=== PATIENT | female | born 1990 | race Caucasian/White ===

== ENCOUNTER 2017-09-29 16:57 | Emergency (ER) | payer SELFPAY ==
[~2017-09-29] VITALS: Ht 157.5 cm; Wt 64.9 kg
[2017-09-29 17:41] VITALS: BP 111/76
[2017-09-29 18:44] VITALS: BP 110/74
[2017-09-29] MEDS ORDERED: ANUSOL-HC25 MG RECTAL (19:05)
[2017-09-29] MEDS ORDERED: CYCLOBENZAPRINE10 MG ORAL (19:05)
[2017-09-29] MEDS ORDERED: IBUPROFEN600 MG ORAL (19:05)
[2017-09-29] MEDS ORDERED: COLACE100 MG ORAL (19:05)
[2017-09-29 19:10] VITALS: BP 110/74
--- NOTE | 2017-09-29 21:41 | Emergency Room Report ---
History of Present Illness General Chief Complaint: General Complaint Source: Patient Present Illness HPI 27-year-old female presents ED for evaluation. States that she's been experiencing blood in her stool 1 week. Also complaining of lower abdominal pain, throbbing, 5 out of 10, nonradiating. States she's been having problems with constipation and has been straining for bowel movements. Denies any nausea or vomiting. Also complaining of right leg pain 6 months. Denies trauma to the leg. Notes pain in her right leg radiating to her hip. Patient is able to walk. No other aggravating or relieving factors. Denies any other associated symptoms Allergies: Coded Allergies: No Known Allergies (Unverified , 09/29/17) Patient History Past Medical History: none Past Surgical History: none Pertinent Family History: none Social History: Denies: smoking, alcohol use, drug use Last Menstrual Period: 08/23/17 Now: No Immunizations: UTD Reviewed Nursing Documentation: PMH: Agreed, PSxH: Agreed Nursing Documentation-PMH Past Medical History: No Stated History Review of Systems All Other Systems: negative except mentioned in HPI Physical Exam Vital Signs Date Time Temp Pulse Resp B/P (MAP) Pulse Ox O2 Delivery O2 Flow Rate FiO2 09/29/17 17:19 98.3 77 18 111/76 97 Room Air 98.2 Sp02 EP Interpretation: reviewed, normal General Appearance: no apparent distress, alert, GCS 15, non-toxic Head: normocephalic, atraumatic Eyes: bilateral eye normal inspection, bilateral eye PERRL ENT: hearing grossly normal, normal pharynx, no angioedema, normal voice Neck: full range of motion, supple/symm/no masses Respiratory: chest non-tender, lungs clear, normal breath sounds, speaking full sentences Cardiovascular #1: regular rate, rhythm, no edema Cardiovascular #2: 2+ carotid (R), 2+ carotid (L), 2+ radial (R), 2+ radial (L) , 2+ dorsalis pedis (R), 2+ dorsalis pedis (L) Gastrointestinal: normal bowel sounds, non tender, soft, non-distended, no guarding, no rebound Rectal: deferred Genitourinary: normal inspection, no CVA tenderness Musculoskeletal: back normal, gait/station normal, normal range of motion, non- tender Neurologic: alert, oriented x3, responsive, motor strength/tone normal, sensory intact, speech normal Psychiatric: judgement/insight normal, memory normal, mood/affect normal, no suicidal/homicidal ideation Reflexes: 3+ bicep (R), 3+ bicep (L), 3+ tricep (R), 3+ tricep (L), 3+ knee (R) , 3+ knee (L) Skin: normal color, no rash, warm/dry, well hydrated Lymphatic: no adenopathy Medical Decision Making Diagnostic Impression: Primary Impression: Constipation Qualified Codes: K59.00 - Constipation, unspecified Additional Impression: Hip strain Qualified Codes: S76.011A - Strain of muscle, fascia and tendon of right hip, initial encounter ER Course Hospital Course 27-year-old female presents ED complaining of right hip pain and right leg pain 6 months. Also complaining of constipation with blood in stool Differential diagnoses include: Fracture, dislocation, sprain, contusion Clinical course Patient placed on stretcher. After initial history and physical, I ordered xrays of R hip and R femur Xrays prelim read shows no acute fracture/dislocation. Discussed findings with patient. I believe pain is likely muscular. Did recommend close follow-up with PMD. I'll prescribe anti-inflammatories and muscle relaxants. I will also prescribe stool softeners and suppositories for her constipation Diagnosis - constipation, hip strain Stable and discharged to home with prescription for colace, juan daniel-ronnie, motrin, flexeril. weight bear as tolerated. Followup with PMD. Return to ED if symptoms recur or worsen Other X-Ray Diagnostic Results Other X-Ray Diagnostic Results #1: X-Ray ordered: R hip # of Views/Limited Vs Complete: 3 View Indication: Pain EP Interpretation: Yes Interpretation: no dislocation, no soft tissue swelling, no fractures Impression: No acute disease Electronically Signed by: Electronically signed by Juan Whitaker MD Other X-Ray Diagnostic Results #2: X-Ray ordered: Right femur # of Views/Limited Vs Complete: 3 View Indication: Pain EP Interpretation: Yes Interpretation: no dislocation, no soft tissue swelling, no fractures Impression: No acute disease Electronically Signed by: Electronically signed by Juan Whitaker MD Last Vital Signs Date Time Temp Pulse Resp B/P (MAP) Pulse Ox O2 Delivery O2 Flow Rate FiO2 09/29/17 19:10 98.2 80 18 110/74 97 Room Air 98.2 Status: improved Disposition: HOME, SELF-CARE Condition: Stable Scripts Hydrocortisone Acetate* (ANUSOL-HC*) 25 Mg Supp.rect 1 SUPP RECTAL TWICE A DAY, #10 SUPP Prov: JUAN WHITAKER M.D. 09/29/17 Docusate Sodium* (COLACE*) 100 Mg Capsule 100 MG ORAL THREE TIMES A DAY, #30 CAP Prov: JUAN WHITAKER M.D. 09/29/17 Cyclobenzaprine Hcl* (FLEXERIL*) 10 Mg Tablet 10 MG ORAL TID Y for Muscle Spasm, #20 TAB Prov: JUAN WHITAKER M.D. 09/29/17 Ibuprofen* (MOTRIN*) 600 Mg Tablet 600 MG ORAL Q8H Y for For Pain, #30 TAB 0 Refills Prov: JUAN WHITAKER M.D. 09/29/17 Patient Instructions: Hip Pain, Constipation, Adult, [id number] JUAN WHITAKER M.D. Sep 29, 2017 21:41
--- NOTE | 2017-09-30 10:55 | Diagnostic Imaging Report ---
Indications: Pain Technique: Two views of the right femur Comparison: none Findings: No acute fractures. No dislocations. Normal mineralization. No radiopaque foreign bodies Impression: Negative
--- NOTE | 2017-09-30 11:07 | Diagnostic Imaging Report ---
Indication: Pain Technique: 2 views of the hip Comparison: none Findings: No acute fractures. No dislocations. Joint spaces are preserved. Normal mineralization. Impression: No acute process
== END 2017-09-29 19:11 | disposition home or self-care (01) ==
LOC: EMR 18:00
DX: K59.00 Constipation, unspecified (principal); S76.011A Strain of muscle, fascia and tendon of right hip, initial encounter; X58.XXXA Exposure to other specified factors, initial encounter; Y92.9 Unspecified place or not applicable
CPT/HCPCS: 81025; 99284

== ENCOUNTER 2018-01-23 12:40 | Emergency (ER) | payer SELFPAY ==
[~2018-01-23] VITALS: Ht 160 cm; Wt 68.0 kg
[~2018-01-23 12:40] MED LIST: ANUSOL-HC25 MG RECTAL; COLACE100 MG ORAL; CYCLOBENZAPRINE10 MG ORAL; IBUPROFEN600 MG ORAL
[2018-01-23 12:54] VITALS: BP 115/79
[2018-01-23] MEDS ORDERED: Metoclopramide 10mg/10ml Liq ORAL ONE (13:15)
[2018-01-23 13:30] LABS: BASOPHILS % (AUTO) 0.8 % (0.0-2.0); EOSINOPHILS % (AUTO) 7.5 % (0.0-3.0); HEMATOCRIT 42.2 % (37.0-47.0); HEMOGLOBIN 14.1 G/DL (12.0-16.0); LYMPHOCYTES % (AUTO) 17.2 % (20.0-45.0); MEAN CORPUSCULAR VOLUME 91 FL (80-99); MONOCYTES % (AUTO) 8.1 % (1.0-10.0); NEUTROPHILS % (AUTO) 66.5 % (45.0-75.0); PLATELET COUNT 224 K/UL (150-450); RED BLOOD COUNT 4.65 M/UL (4.20-5.40); RED CELL DISTRIBUTION WIDTH 11.2 % (11.6-14.8); WHITE BLOOD COUNT 7.2 K/UL (4.8-10.8)
[2018-01-23 13:55] LABS: APPEARANCE,URINE SLIGHTLY CLOUDY; BILIRUBIN, URINE NEGATIVE (NEGATIVE); GLUCOSE, URINE (UA) NEGATIVE (NEGATIVE); KETONES,URINE NEGATIVE (NEGATIVE); LEUKOCYTE ESTERASE ,URINE 1+ (NEGATIVE); NITRITE,URINE NEGATIVE (NEGATIVE); PH,URINE 5 (4.5-8.0); PROTEIN,URINE NEGATIVE (NEGATIVE); UROBILINOGEN,URINE NORMAL MG/DL (0.0-1.0)
[2018-01-23 13:58] LABS: COLOR,URINE YELLOW
[2018-01-23 14:08] LABS: ANION GAP 9 mmol/L (5-15); BLOOD UREA NITROGEN 9 mg/dL (7-18); CALCIUM 9.5 MG/DL (8.5-10.1); CARBON DIOXIDE 24 MMOL/L (21-32); CHLORIDE 104 MMOL/L (98-107); CREATININE 0.8 MG/DL (0.55-1.30); POTASSIUM 3.6 MMOL/L (3.5-5.1); SODIUM 137 MMOL/L (136-145)
[2018-01-23 14:13] LABS: ALANINE AMINOTRANSFERASE 28 U/L (12-78); ALBUMIN 4.2 G/DL (3.4-5.0); ALBUMIN/GLOBULIN RATIO 1.2 (1.0-2.7); ALKALINE PHOSPHATASE 71 U/L (46-116); ASPARTATE AMINO TRANSFERASE 13 U/L (15-37); BILIRUBIN,TOTAL 0.5 MG/DL (0.2-1.0)
[2018-01-23 14:34] VITALS: BP 115/79
--- NOTE | 2018-01-23 14:35 | Diagnostic Imaging Report ---
EXAM: US First Trimester, Transabdominal CLINICAL HISTORY: ABD PAIN TECHNIQUE: Real-time transabdominal obstetrical ultrasound of the maternal pelvis and a first trimester with image documentation. COMPARISON: No relevant prior studies available. FINDINGS: Gestation: No intrauterine gestational sac or pole identified. Uterus/cervix: Endometrial stripe appears thickened, measuring 19 mm. The uterus measures 8.2 x 7.3 x 5.2 cm. No myometrial mass. Ovaries: The right ovary measures 6.9 x 3.9 x 3.6 cm. The left ovary measures 3.1 x 2.9 x 2.1 cm. No mass. Patent Doppler flow to both ovaries. Free fluid: No free fluid. IMPRESSION: 1. No intrauterine gestation identified. Recommend correlation with serum beta hCG values and follow-up sonography if clinically indicated. 2. Endometrial stripe mildly thickened, measuring 19 mm.
[2018-01-23] MEDS ORDERED: PRENA1 CHEW TA1.4 MG PO (14:44)
--- NOTE | 2018-01-25 07:08 | Emergency Room Report ---
History of Present Illness General Chief Complaint: General Complaint Source: Patient Present Illness HPI 28-year-old female presents ED complaining of spotting times one day. Also complaining of cramping pain. 3 out of 10, nonradiating. Patient states that she took a test today which was positive. Denies any nausea or vomiting. Denies any fevers chills. Denies dysuria or hematuria. No other aggravating relieving factors. Denies any other associated symptoms Allergies: Coded Allergies: No Known Allergies (Unverified , 09/29/17) Patient History Past Medical History: none Past Surgical History: none Pertinent Family History: none Social History: Denies: smoking, alcohol use, drug use Last Menstrual Period: 12/16/17 Now: Yes - positive test Immunizations: UTD Reviewed Nursing Documentation: PMH: Agreed; PSxH: Agreed Nursing Documentation-PMH Past Medical History: No Stated History Review of Systems All Other Systems: negative except mentioned in HPI Physical Exam Vital Signs Date Time Temp Pulse Resp B/P (MAP) Pulse Ox O2 Delivery O2 Flow Rate FiO2 01/23/18 12:45 98.0 102 16 115/79 95 Room Air 98.1 Sp02 EP Interpretation: reviewed, normal General Appearance: no apparent distress, alert, GCS 15, non-toxic Head: normocephalic, atraumatic Eyes: bilateral eye normal inspection, bilateral eye PERRL ENT: hearing grossly normal, normal pharynx, no angioedema, normal voice Neck: full range of motion, supple/symm/no masses Respiratory: chest non-tender, lungs clear, normal breath sounds, speaking full sentences Cardiovascular #1: regular rate, rhythm, no edema Cardiovascular #2: 2+ carotid (R), 2+ carotid (L), 2+ radial (R), 2+ radial (L) , 2+ dorsalis pedis (R), 2+ dorsalis pedis (L) Gastrointestinal: normal bowel sounds, non tender, soft, non-distended, no guarding, no rebound Rectal: deferred Genitourinary: normal inspection, no CVA tenderness Musculoskeletal: back normal, gait/station normal, normal range of motion, non- tender Neurologic: alert, oriented x3, responsive, motor strength/tone normal, sensory intact, speech normal Psychiatric: judgement/insight normal, memory normal, mood/affect normal, no suicidal/homicidal ideation Reflexes: 3+ bicep (R), 3+ bicep (L), 3+ tricep (R), 3+ tricep (L), 3+ knee (R) , 3+ knee (L) Skin: normal color, no rash, warm/dry, well hydrated Lymphatic: no adenopathy Medical Decision Making Diagnostic Impression: Primary Impression: Threatened ER Course Hospital Course 28-year-old female presents to ED complaining of lower abdominal pain with spotting. possible Differential diagnoses include: gastrits, gastroenterits, ectopic , ovarian torsion/cyst, UTI Clinical course Patient placed on stretcher in ED. After initial history and physical I ordered labs, OB US Labs-no leukocytosis, electrolytes okay, beta hCG 623, UA unremarkable OB ultrasound - no IUP noted. no adnexal abnromalities Discussed findings with the patient. Stated that her beta hCG is likely too low to visualize on ultrasound. Possible early versus threatened . Recommend follow-up with [facility] with serial beta hCG and ultrasound. I will provide her with [facility] referral. I will discharge with vitamins Diagnosis - threatened Stable and discharged to home with Rx vitamins. Followup with PMD/OB/ [employer]. Return to ED if symptoms recur or worsen Labs Test 01/23/18 13:09 White Blood Count 7.2 K/UL (4.8-10.8) Red Blood Count 4.65 M/UL (4.20-5.40) Hemoglobin 14.1 G/DL (12.0-16.0) Hematocrit 42.2 % (37.0-47.0) Mean Corpuscular Volume 91 FL (80-99) Mean Corpuscular Hemoglobin 30.3 PG (27.0-31.0) Mean Corpuscular Hemoglobin Concent 33.4 G/DL (32.0-36.0) Red Cell Distribution Width 11.2 % (11.6-14.8) Platelet Count 224 K/UL (150-450) Mean Platelet Volume 8.1 FL (6.5-10.1) Neutrophils (%) (Auto) 66.5 % (45.0-75.0) Lymphocytes (%) (Auto) 17.2 % (20.0-45.0) Monocytes (%) (Auto) 8.1 % (1.0-10.0) Eosinophils (%) (Auto) 7.5 % (0.0-3.0) Basophils (%) (Auto) 0.8 % (0.0-2.0) Urine Color Yellow Urine Appearance Slightly cloudy Urine pH 5 (4.5-8.0) Urine Specific [place] 1.025 (1.005-1.035) Urine Protein Negative (NEGATIVE) Urine Glucose (UA) Negative (NEGATIVE) Urine Ketones Negative (NEGATIVE) Urine Occult Blood Negative (NEGATIVE) Urine Nitrite Negative (NEGATIVE) Urine Bilirubin Negative (NEGATIVE) Urine Urobilinogen Normal MG/DL (0.0-1.0) Urine Leukocyte Esterase 1+ (NEGATIVE) Urine RBC 0-2 /HPF (0 - 2) Urine WBC 2-4 /HPF (0 - 2) Urine Squamous Epithelial Cells Many /LPF (NONE/OCC) Urine Bacteria Few /HPF (NONE) Urine HCG, Qualitative Positive (NEGATIVE) Sodium Level 137 MMOL/L (136-145) Potassium Level 3.6 MMOL/L (3.5-5.1) Chloride Level 104 MMOL/L (98-107) Carbon Dioxide Level 24 MMOL/L (21-32) Anion Gap 9 mmol/L (5-15) Blood Urea Nitrogen 9 mg/dL (7-18) Creatinine 0.8 MG/DL (0.55-1.30) Estimat Glomerular Filtration Rate > 60 mL/min (>60) Glucose Level 97 MG/DL (74-106) Calcium Level 9.5 MG/DL (8.5-10.1) Total Bilirubin 0.5 MG/DL (0.2-1.0) Aspartate Amino Transf (AST/SGOT) 13 U/L (15-37) Alanine Aminotransferase (ALT/SGPT) 28 U/L (12-78) Alkaline Phosphatase 71 U/L (46-116) Total Protein 7.8 G/DL (6.4-8.2) Albumin 4.2 G/DL (3.4-5.0) Globulin 3.6 g/dL Albumin/Globulin Ratio 1.2 (1.0-2.7) Lipase 160 U/L (73-393) Human Chorionic Gonadotropin, Quant 621 mIU/mL (1-6) CT/MRI/US Diagnostic Results CT/MRI/US Diagnostic Results : Imaging Test Ordered: Pelvic US Impression 1. No intrauterine gestation identified. Recommend correlation with serum beta hCG values and follow-up sonography if clinically indicated. 2. Endometrial stripe mildly thickened, measuring 19 mm. Last Vital Signs Date Time Temp Pulse Resp B/P (MAP) Pulse Ox O2 Delivery O2 Flow Rate FiO2 01/23/18 14:34 98.1 80 16 115/79 95 Room Air 98.1 Disposition: HOME, SELF-CARE Condition: Stable Scripts Comb No.42/Folic Acid (Prena1 Chew Tablet) 1.4 Mg Tab.ch.bph 1.4 MG PO DAILY, #30 TAB Prov: Juan Whitaker MD 01/23/18 Referrals: NOT CHOSEN IPA/,REFERRING (PCP) KATIE MURPHY Carla M.D. Patient Instructions: Threatened Miscarriage, [id number] Juan Whitaker MD Jan 25, 2018 07:08
== END 2018-01-23 14:50 | disposition home or self-care (01) ==
LOC: EMR 13:30
DX: O20.0 Threatened abortion (principal); Z3A.00 Weeks of gestation of pregnancy not specified
CPT/HCPCS: 36415; 76801; 76830; 80053; 81003; 81025; 83690; 84702; 85025; 99284

== ENCOUNTER 2018-09-30 09:43 | Emergency (ER) | payer MEDICAID ==
[~2018-09-30] VITALS: Ht 162.6 cm; Wt 65.8 kg
[~2018-09-30 09:43] MED LIST changes: +PRENA1 CHEW TA1.4 MG PO
[2018-09-30] MEDS ORDERED: NKM (09:51)
[2018-09-30 09:56] VITALS: BP 119/79
--- NOTE | 2018-09-30 09:56 | NUR ---
ED Nurse Note: ambulated in to ER due to rashes all over the body x 3 days; c/o itching. No redness nor blister seen on rashes. Per pt, she recently delivered baby 09/30/18. No fever, oral temp of 98.2F.
--- NOTE | 2018-09-30 09:57 | NUR ---
ED Nurse Note: pt denies any swelling. Denies SOB
--- NOTE | 2018-09-30 10:00 | NUR ---
ED Nurse Note: pt reports that she is not at this time.
[2018-09-30] MEDS ORDERED: DiphenhydrAMINE 50mg/ml Inj IVP ONE (10:15)
[2018-09-30] MEDS ORDERED: Solu-MEDROL 125mg Inj IVP ONE (10:15)
--- NOTE | 2018-09-30 10:15 | Emergency Room Report ---
History of Present Illness General Chief Complaint: Skin Rash/Abscess Source: Patient Present Illness HPI 27-year-old female presents ED for evaluation. Patient complaining of diffuse rash for the last 3 days. States it is very itchy. Denies pain. Denies any known food or drug allergies. Denies any new soaps, detergents, clothing or bed sheets. Denies any tongue swelling or throat swelling. Denies any shortness of breath. States that she was discharge from [facility] on 09/25 status post vaginal delivery. States she was given medications during her hospital course but none to be discharged with. Did not have any symptoms during discharge. No other aggravating relieving factors. Denies any other associated symptoms Allergies: Coded Allergies: No Known Allergies (Unverified , 09/29/17) Patient History Past Medical History: none Past Surgical History: none Pertinent Family History: none Social History: Denies: smoking, alcohol use, drug use Last Menstrual Period: delivered baby on 09/20/18 Now: No Immunizations: UTD Reviewed Nursing Documentation: PMH: Agreed; PSxH: Agreed Nursing Documentation-PMH Past Medical History: No Stated History Review of Systems All Other Systems: negative except mentioned in HPI Physical Exam Vital Signs Date Time Temp Pulse Resp B/P (MAP) Pulse Ox O2 Delivery O2 Flow Rate FiO2 09/30/18 09:49 98.1 76 18 119/79 98 Room Air Sp02 EP Interpretation: reviewed, normal General Appearance: no apparent distress, alert, GCS 15, non-toxic Head: normocephalic, atraumatic Eyes: bilateral eye normal inspection, bilateral eye PERRL ENT: hearing grossly normal, normal pharynx, no angioedema, normal voice Neck: full range of motion, supple/symm/no masses Respiratory: chest non-tender, lungs clear, normal breath sounds, speaking full sentences Cardiovascular #1: regular rate, rhythm, no edema Cardiovascular #2: 2+ carotid (R), 2+ carotid (L), 2+ radial (R), 2+ radial (L) , 2+ dorsalis pedis (R), 2+ dorsalis pedis (L) Gastrointestinal: normal bowel sounds, non tender, soft, non-distended, no guarding, no rebound Rectal: deferred Genitourinary: normal inspection, no CVA tenderness Musculoskeletal: back normal, gait/station normal, normal range of motion, non- tender Neurologic: alert, oriented x3, responsive, motor strength/tone normal, sensory intact, speech normal Psychiatric: judgement/insight normal, memory normal, mood/affect normal, no suicidal/homicidal ideation Reflexes: 3+ bicep (R), 3+ bicep (L), 3+ tricep (R), 3+ tricep (L), 3+ knee (R) , 3+ knee (L) Skin: normal color, warm/dry, well hydrated, rash - urticarial diffuse rash Lymphatic: no adenopathy Medical Decision Making Diagnostic Impression: Primary Impression: Allergic reaction Qualified Codes: T78.40XA - Allergy, unspecified, initial encounter ER Course Hospital Course 27-year-old female presents with diffuse urticarial rash x 3 days Differential diagnoses include: allergic reaction, angioedema, anaphylaxis Clinical course Patient placed on stretcher. animal herder. After initial history and physical, I ordered Solu-Medrol, Benadryl, Zantac, IV fluids On reassessment patient feels better. No signs of airway compromise or anaphylaxis. Vital stable. Discussed findings with patient. No clear cause of her allergic reaction based on patient's history. We will discharge with prednisone, Benadryl, pepcid. Safe for discharge and close outpatient follow-up i. I feel this is a highly complex case requiring extensive working including EKG/Rhythm strip, Xray/CT/US, Blood/urine lab work, repeat exams while in ED, and administration of strong opiates/narcotics for pain control, admission to hospital or close patient follow up. Diagnosis - allergic reaction Stable and discharged to home with prescriptions for Zantac, prednisone, Benadryl. Followup with PMD. Return to ED if symptoms recur or worsen Last Vital Signs Date Time Temp Pulse Resp B/P (MAP) Pulse Ox O2 Delivery O2 Flow Rate FiO2 09/30/18 09:56 98.1 72 18 119/79 98 Room Air Status: improved Disposition: HOME, SELF-CARE Condition: Stable Scripts Ranitidine Hcl* (ZANTAC*) 150 Mg Tablet 150 MG ORAL TWICE A DAY for 5 Days, #30 TAB Prov: Juan Whitaker MD 09/30/18 Prednisone* (PREDNISONE*) 20 Mg Tablet 40 MG ORAL DAILY for 5 Days, #10 TAB Prov: Juan Whitaker MD 09/30/18 Diphenhydramine Hcl* (DIPHENHYDRAMINE HCL*) 25 Mg Capsule 25 MG ORAL Q6H PRN for Itching for 5 Days, #30 CAP 0 Refills Prov: Juan Whitaker MD 09/30/18 Juan Whitaker MD Sep 30, 2018 10:15
[2018-09-30 10:17] VITALS: BP 117/73
[2018-09-30] MEDS ORDERED: PREDNISONE20 MG ORAL (11:54)
[2018-09-30] MEDS ORDERED: RANITIDINE HCL150 MG ORAL (11:54)
[2018-09-30] MEDS ORDERED: DIPHENHYDRAMINE25 M1 ORAL (11:54)
[2018-09-30 12:00] VITALS: BP 118/90
[2018-09-30 12:01] VITALS: BP 118/90
--- NOTE | 2018-09-30 12:01 | NUR ---
ED Nurse Note: Pt cleared by health care Provider for discharge. DC instructions/prescription was given and explained to pt and verbalized understanding of teachings. All medical deviecs such as ID band removed. Pt is AAO x4, ambulatory and left with all personal belongings. Pt reported that she will ask someone to pick her up or take uber home
== END 2018-09-30 12:02 | disposition home or self-care (01) ==
LOC: EMR 10:12
DX: T78.40XA Allergy, unspecified, initial encounter (principal); X58.XXXA Exposure to other specified factors, initial encounter; R21 Rash and other nonspecific skin eruption
CPT/HCPCS: 96374; 96375; 99284; J1200; J2930; S0028